=== PATIENT | female | born 2000 | race Caucasian/White ===

== ENCOUNTER 2021-03-25 08:48 | Emergency (ER) | payer OTHER ==
[2021-03-25] MEDS ORDERED: fentaNYL 50 MCG/ML SDV IVPUSH ONE (08:59)
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
[2021-03-25] MEDS ORDERED: Acetaminophen/oxyCODONE 325-5 MG Tab PO ONE (09:23)
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
[2021-03-25 10:22] LABS: BLOOD UREA NITROGEN,BUN 12 mg/dL (7.0-18.0); CARBON DIOXIDE,CO2 24.4 mmol/L (21.0-32.0); CHLORIDE,CL 104 mmol/L (98-107); GLUCOSE RANDOM 96 mg/dL (74-106); LIPASE 68 U/L (73-393); POTASSIUM,K 4.3 mmol/L (3.5-5.1); SODIUM,NA 136 mmol/L (136-145)
== END 2021-03-25 11:28 | disposition home or self-care (01) ==
LOC: MW.ED 08:48
DX: S20.212A Contusion of left front wall of thorax, initial encounter (principal); V40.5XXA Car driver injured in collision with pedestrian or animal in traffic accident, initial encounter; Y92.410 Unspecified street and highway as the place of occurrence of the external cause
CPT/HCPCS: 36415; 70450; 71250; 80053; 83690; 84703; 85025; 99284; A9270